=== PATIENT | male | born 1945 | race Caucasian/White ===

== ENCOUNTER → 2018-02-10 | Outpatient (CLI) | payer OTHER, MEDICARE ==
--- NOTE | 2018-02-10 09:09 | Diagnostic Imaging Report ---
PROCEDURE: Frontal and lateral views of the chest. COMPARISON: Chest 2 views 05/01/2017. INDICATIONS: PNEUMONIA FINDINGS: Lines/tubes: None. Lungs: The lungs are well inflated and clear. There is no evidence of pneumonia or pulmonary edema. Pleura: There is no pleural effusion or pneumothorax. Heart and mediastinum: The heart and the mediastinum are normal. Bones: No acute bony abnormality. Degenerative changes of the thoracic spine. IMPRESSION: No acute radiographic abnormality. Dictated by: Ced Barry M.D. on 02/10/2018 at 9:10 Electronically approved by: Ced Barry M.D. on 02/10/2018 at 9:10
== END ==
LOC: RAD 07:39
PROVIDERS: ATTEND General Practice
DX: Z00.00 Encounter for general adult medical examination without abnormal findings (principal)
CPT/HCPCS: 71046

== ENCOUNTER 2025-02-21 10:00 | Outpatient (RCR) | payer MEDICARE | END 2025-02-22 | LOC: RESP 10:00 | PROVIDERS: ATTEND Internal Medicine Pulmonary Disease | DX: J44.9 Chronic obstructive pulmonary disease, unspecified (principal) | CPT/HCPCS: 94626 ×3; 94799; G0238 ×3 ==